=== PATIENT | female | born 1970 ===

== ENCOUNTER 2017-03-09 18:26 | Inpatient (IN) | payer OTHER ==
[2017-03-09 20:52] LABS: Hematocrit 37.6 % (30.3-42.9); Hemoglobin 12.5 gm/dl (10.1-14.3); Mean Corpuscular HGB Conc 33 % (30-34); Mean Corpuscular Hemoglobin 29 pg (28-32); Mean Corpuscular Volume 87 fl (79-97); Platelet Count 198 K/mm3 (140-440); Red Blood Count 4.35 M/mm3 (3.65-5.03); Red Cell Distribution Width 14.6 % (13.2-15.2)
[2017-03-09 21:13] LABS: Anion Gap 19 mmol/L; Blood Urea Nitrogen 15 mg/dL (7-17); Calcium 8.9 mg/dL (8.4-10.2); Carbon Dioxide 21 mmol/L (22-30); Glucose 95 mg/dL (65-100); Potassium 4.5 mmol/L (3.6-5.0); Sodium 140 mmol/L (137-145)
[2017-03-09 22:10] LABS: Blastocytes % (Manual) 0 %
[2017-03-09 22:11] LABS: Diff Status Complete; Platelet Estimate Consistent w Auto; RBC Morphology Normal
[2017-03-10] MEDS ORDERED: DECADRON IV ONE (06:08)
[2017-03-10] MEDS ORDERED: DUONEB *Not for PRN Use IH ONE (06:08)
--- NOTE | 2017-03-10 06:09 | Emergency Department Report ---
ED Chest Pain HPI - General Chief Complaint: Chest Pain Stated Complaint: CHEST PAIN Time Seen by Provider: 03/10/17 05:59 Source: patient Mode of arrival: Stretcher Limitations: No Limitations - History of Present Illness Initial Comments: Patient is a 46-year-old female who presents to the emergency department with complaint of chest pain for 3 years. She states the pain has been getting worse over the last several days which is why she returned to the emergency department. States she's had some cough but no fever. She does short of breath with chest pain. She describes chest pain as a tightness. -: year(s) (3) Onset: during rest, during exertion Pain Location: right chest Pain Radiation: none Severity scale (0 -10): 5 Quality: tightness Consistency: constant Improves With: nothing, eating Worsens With: exertion, inspiration Context: recent illness re: dyspnea. denies: nausea, vomting Other Symptoms: cough - Related Data Home Medications Medication Instructions Recorded Confirmed Last Taken No Known Home Medications [No 03/09/17 03/09/17 Unknown Reported Home Medications] Allergies Allergy/AdvReac Type Severity Reaction Status Date / Time aspirin Allergy Rash Verified 03/09/17 19:34 Heart Score - HEART Score History: Slightly suspicious EKG: Normal Age: 45-65 Risk factors: > 3 risk factors or hx of atherosclerotic disease Troponin: < normal limit HEART Score: 3 - Critical Actions Critical Actions: 0-3 pts:0.9-1.7%risk of adverse cardiac event.Candidate for discharge ED Review of Systems ROS: Stated complaint: CHEST PAIN Other details as noted in HPI Comment: All other systems reviewed and negative Constitutional: denies: chills, fever Eyes: denies: eye pain, eye discharge, vision change ENT: denies: ear pain, throat pain Respiratory: cough, shortness of breath, SOB with exertion. denies: wheezing Cardiovascular: chest pain, dyspnea on exertion. denies: palpitations Endocrine: no symptoms reported Gastrointestinal: denies: abdominal pain, nausea, diarrhea Genitourinary: denies: urgency, dysuria, discharge Musculoskeletal: denies: back pain, joint swelling, arthralgia Skin: denies: rash, lesions Neurological: denies: headache, weakness, paresthesias Psychiatric: denies: anxiety, depression Hematological/Lymphatic: denies: easy bleeding, easy bruising ED Past Medical Hx - Past Medical History Previous Medical History?: Yes Additional medical history: History of "heart damage" - Surgical History Past Surgical History?: No - Family History Family history: no significant - Social History Smoking Status: Never Smoker Substance Use Type: None - Medications Home Medications: Home Medications Medication Instructions Recorded Confirmed Last Taken Type No Known Home Medications [No 03/09/17 03/09/17 Unknown History Reported Home Medications] ED Physical Exam - General Limitations: No Limitations General appearance: alert, in no apparent distress - Head Head exam: Present: atraumatic, normocephalic - Eye Eye exam: Present: normal appearance. Absent: scleral icterus, conjunctival injection - ENT ENT exam: Present: mucous membranes moist - Neck Neck exam: Present: normal inspection - Respiratory Respiratory exam: Present: wheezes, accessory muscle use, other (tachypnea) - Cardiovascular Cardiovascular Exam: Present: regular rate, normal rhythm, normal heart sounds. Absent: systolic murmur, diastolic murmur, rubs, gallop - GI/Abdominal GI/Abdominal exam: Present: soft, normal bowel sounds - Extremities Exam Extremities exam: Present: normal inspection - Back Exam Back exam: Present: normal inspection - Neurological Exam Neurological exam: Present: alert, oriented X3 - Psychiatric Psychiatric exam: Present: normal affect, normal mood - Skin Skin exam: Present: warm, dry, intact, normal color. Absent: rash ED Course Vital Signs 03/09/17 03/10/17 03/10/17 19:21 00:29 04:49 Temperature 98.2 F 97.9 F 97.8 F Pulse Rate 74 74 68 Respiratory 18 18 20 Rate Blood Pressure 127/70 135/80 Blood Pressure 133/94 [Left] O2 Sat by Pulse 94 95 97 Oximetry 03/10/17 03/10/17 04:50 08:17 Temperature 97.9 F Pulse Rate 94 H Respiratory 20 15 Rate Blood Pressure Blood Pressure 132/73 [Left] O2 Sat by Pulse 97 97 Oximetry ED Medical Decision Making - Lab Data Result diagrams: 03/09/17 20:37 03/09/17 20:37 Laboratory Results - last 24 hr 03/09/17 03/09/17 03/09/17 20:37 20:37 20:45 WBC 6.0 RBC 4.35 Hgb 12.5 Hct 37.6 MCV 87 MCH 29 MCHC 33 RDW 14.6 Plt Count 198 Eos % (Auto) Founder And Ceo Add Manual Diff Complete Total Counted 100 Seg Neuts % (Manual) 42.0 Band Neutrophils % 2.0 Lymphocytes % (Manual) 28.0 Reactive Lymphs % (Man) 2.0 Monocytes % (Manual) 12.0 H Eosinophils % (Manual) 12.0 H Basophils % (Manual) 2.0 H Metamyelocytes % 0 Myelocytes % 0 Promyelocytes % 0 Blast Cells % 0 Nucleated RBC % Not Reportable Seg Neutrophils # Man 2.5 Band Neutrophils # 0.1 Lymphocytes # (Manual) 1.7 Abs React Lymphs (Man) 0.1 Monocytes # (Manual) 0.7 Eosinophils # (Manual) 0.7 H Basophils # (Manual) 0.1 Metamyelocytes # 0.0 Myelocytes # 0.0 Promyelocytes # 0.0 Blast Cells # 0.0 WBC Morphology Not Reportable Hypersegmented Neuts Not Reportable Hyposegmented Neuts Not Reportable Hypogranular Neuts Not Reportable Smudge Cells Not Reportable Toxic Granulation Not Reportable Toxic Vacuolation Not Reportable Dohle Bodies Not Reportable Pelger-Huet Anomaly Not Reportable Shaheen Rods Not Reportable Platelet Estimate Consistent w auto Clumped Platelets Not Reportable Plt Clumps, EDTA Not Reportable Large Platelets Not Reportable Giant Platelets Not Reportable Platelet Satelliting Not Reportable Plt Morphology Comment Not Reportable RBC Morphology Normal Dimorphic RBCs Not Reportable Polychromasia Not Reportable Hypochromasia Not Reportable Poikilocytosis Not Reportable Anisocytosis Not Reportable Microcytosis Not Reportable Macrocytosis Not Reportable Spherocytes Not Reportable Pappenheimer Bodies Not Reportable Sickle Cells Not Reportable Target Cells Not Reportable Tear Drop Cells Not Reportable Ovalocytes Not Reportable Helmet Cells Not Reportable [place]endez-[place] Bodies Not Reportable [place] Rings Not Reportable Bard Cells Not Reportable Bite Cells Not Reportable Crenated Cell Not Reportable Elliptocytes Not Reportable Acanthocytes (Spur) Not Reportable Rouleaux Not Reportable Hemoglobin C Crystals Not Reportable Schistocytes Not Reportable Malaria parasites Not Reportable Jose E Bodies Not Reportable Hem Pathologist Commnt No D-Dimer Sodium 140 Potassium 4.5 Chloride 105.0 Carbon Dioxide 21 L Anion Gap 19 BUN 15 Creatinine 0.5 L Estimated GFR > 60 BUN/Creatinine Ratio 30.00 Glucose 95 Calcium 8.9 Troponin T < 0.010 HCG, Qual Negative 03/09/17 03/10/17 03/10/17 22:55 02:17 04:58 WBC RBC Hgb Hct MCV MCH MCHC RDW Plt Count Eos % (Auto) Add Manual Diff Total Counted Seg Neuts % (Manual) Band Neutrophils % Lymphocytes % (Manual) Reactive Lymphs % (Man) Monocytes % (Manual) Eosinophils % (Manual) Basophils % (Manual) Metamyelocytes % Myelocytes % Promyelocytes % Blast Cells % Nucleated RBC % Seg Neutrophils # Man Band Neutrophils # Lymphocytes # (Manual) Abs React Lymphs (Man) Monocytes # (Manual) Eosinophils # (Manual) Basophils # (Manual) Metamyelocytes # Myelocytes # Promyelocytes # Blast Cells # WBC Morphology Hypersegmented Neuts Hyposegmented Neuts Hypogranular Neuts Smudge Cells Toxic Granulation Toxic Vacuolation Dohle Bodies Pelger-Huet Anomaly Shaheen Rods Platelet Estimate Clumped Platelets Plt Clumps, EDTA Large Platelets Giant Platelets Platelet Satelliting Plt Morphology Comment RBC Morphology Dimorphic RBCs Polychromasia Hypochromasia Poikilocytosis Anisocytosis Microcytosis Macrocytosis Spherocytes Pappenheimer Bodies Sickle Cells Target Cells Tear Drop Cells Ovalocytes Helmet Cells [place]endez-[place] Bodies [place] Rings Bard Cells Bite Cells Crenated Cell Elliptocytes Acanthocytes (Spur) Rouleaux Hemoglobin C Crystals Schistocytes Malaria parasites Jose E Bodies Hem Pathologist Commnt D-Dimer 278.56 H Sodium Potassium Chloride Carbon Dioxide Anion Gap BUN Creatinine Estimated GFR BUN/Creatinine Ratio Glucose Calcium Troponin T < 0.010 < 0.010 HCG, Qual - EKG Data -: EKG Interpreted by Me - EKG Data 03/10/17 06:09 Sinus 71 normal axis normal intervals no ST-T wave changes - Radiology Data Radiology results: image reviewed No evidence of CHF on chest x-ray - Medical Decision Making 46-year-old female here with complaint of chest pain. She is actively wheezing and tachypneic in the room. Believe this is likely a asthma versus COPD exacerbation. The patient states that she does use inhalers from time to time in the winter months. She does not use steroids regularly. Chest x-ray no evidence of CHF. EKG without evidence of ischemia. 2 negative troponins. Plan to treat with albuterol and Atrovent and Decadron and plan to reassess patient. Patient with mild improvement after nebulizer and steroids. She still appears tachypneic and oxygen saturations in the low 90s on room air. Plan admit the patient to hospitalist service for continued treatment. Portions of this chart were dictated with dictation software. There may be dictation errors contained within this note. Critical care attestation.: If time is entered above; I have spent that time in minutes in the direct care of this critically ill patient, excluding procedure time. ED Disposition Clinical Impression: Asthma with acute exacerbation Disposition: DC-09 OP ADMIT IP TO THIS HOSP Is pt being admited?: Yes Condition: Stable Referrals: GUERLINE MITCHELL [Other] - 3-5 Days
--- NOTE | 2017-03-10 07:45 | XRay Report ---
ROUTINE CHEST, TWO VIEWS: HISTORY: Chest pain, cough. The trachea, heart, mediastinal contour, lung nieves and bony thorax are unremarkable. IMPRESSION: Unremarkable chest x-ray.
[2017-03-10] MEDS ORDERED: PROVENTIL IH PRN (09:43)
[2017-03-10] MEDS ORDERED: ZOFRAN IV PRN (09:43)
[2017-03-10] MEDS ORDERED: ATROVENT IH SCH (09:45)
[2017-03-10] MEDS ORDERED: TYLENOL PO PRN (10:00)
[2017-03-10] MEDS ORDERED: DULCOLAX PR PRN (10:00)
[2017-03-10] MEDS ORDERED: NACL ONE (10:17)
[2017-03-10] MEDS: LOVENOX SUB-Q SCH (11:17)
[2017-03-10] MEDS: DUONEB *Not for PRN Use IH SCH ×2 (13:19→20:34)
--- NOTE | 2017-03-10 14:02 | Cat Scan Report ---
CTA chest: Chest pain with elevated d-dimer. Following IV contrast pulmonary and was protocol transverse images were performed with coronal and sagittal 2-D reformatted images as well as a 3-D MIP image. The pulmonary vessels are well opacified as are the cardiac chambers and thoracic aorta. No intraluminal filling defects identified in the pulmonary arteries or ventricular chambers. The thoracic aorta is also well opacified and have a normal size and contour. The central airways are patent. There is a 19 mm sized mass/lymph node in the superior right hilum with smaller adenopathy around the lower lobe pulmonary structures on the right as well as on the left. There is bilateral lower lobe bronchial mucous plugging. Basilar atelectasis is present peripherally. The thyroid lobes demonstrate inhomogeneous enhancement with a focally enhancing 12 mm nodule on the right. Impressions: 1. No pulmonary embolus identified. 2. Bilateral hilar and right peripheral adenopathy. 3. Mucous plugging and lower lobe atelectasis. 4. Enhancing thyroid nodule.
[2017-03-10] MEDS: PEPCID PO SCH (14:10)
[2017-03-10] MEDS: AUGMENTIN 875 MG PO SCH ×2 (14:10→23:38)
--- NOTE | 2017-03-10 15:22 | Event Note ---
Date: 03/10/17 Patient seen and examined in no acute distress admitted with shortness of breath reproducible chest pain that has been ongoing for more than a year worse in the past 1 week. Patient reports cough productive of clear phlegm. Denies any fever denies any nausea vomiting describes chest pain as 5/10 intensity worse with palpation across the chest. Burning in nature Acute Bronchitis with mucus plugging Atypical chest pain-Likely condochondritis Asthma with acute exacerbation Elevated D.dimer PLAN * Nebs as needed and PRN * PEAK FLOW METER * Pulmonary evaulation * steroids with taper * Stress test when clinically stable * PO abx * dvt/gi PROPHY * PE RULED OUT. * Plan discussed with the patient in detail
--- NOTE | 2017-03-10 15:29 | History and Physical Report ---
<KELSY WOO - Last Filed: 03/11/17 07:34> History of Present Illness Date of examination: 03/10/17 Date of admission: 03/10/17 09:43 Chief complaint: Shortness of breath History of present illness: Patient is 46 years old Som[place] female with past medical history of Asthma, who presents to the emergency department with complaining of shortness of breath.Until this morning patient was at her normal baseline state of health. Patient developed difficulty of breathing this morning around 5:00 AM she has had progressive worsening of shortness of breath. Patient denies she has had no fevers, chills, or night sweats. No hx of recurrent pneumonia. She has no sick contact, TB exposure (that she knows of ie incarcerated, homeless). She also has no pets, has not been around any farm animals, and has not traveled recently or been around those who have. Patient also complians chest pain. She states that the pain began yesterday constant left side chest pain. The pain was located over her substerna.Patient described as, burning localized. Pain increased with palpation, there is no reliving factors. The painful episodes did not increase in intensity or severity during this time. Shee denies shortness of breath and diaphoresis. Past History Past Medical History: other (Asthma ) Past Surgical History: No surgical history Social history: lives with family. denies: smoking, alcohol abuse Family history: hypertension Medications and Allergies Allergies Allergy/AdvReac Type Severity Reaction Status Date / Time aspirin Allergy Rash Verified 03/09/17 19:34 Home Medications Medication Instructions Recorded Confirmed Last Taken Type No Known Home Medications [No 03/09/17 03/09/17 Unknown History Reported Home Medications] Active Meds: Active Medications Acetaminophen (Tylenol) 650 mg PO Q4H PRN PRN Reason: Pain MILD(1-3)/Fever >100.5/STALEY Albuterol (Proventil) 2.5 mg IH Q3HRT PRN PRN Reason: Shortness Of Breath Albuterol/Ipratropium (Duoneb *Not For Prn Use*) 1 ampul IH Q6HRT [facility] Last Admin: 03/10/17 13:19 Dose: 1 ampul Amoxicillin/Clavulanate Potassium (Augmentin 875 Mg) 1 each PO Q12HR [facility] Last Admin: 03/10/17 14:10 Dose: 1 each Bisacodyl (Dulcolax) [address] QDAY PRN PRN Reason: Constipation Enoxaparin Sodium (Lovenox) 40 mg SUB-Q QDAY [facility] Last Admin: 03/10/17 11:17 Dose: 40 mg Famotidine (Pepcid) 40 mg PO QDAY [facility] Last Admin: 03/10/17 14:10 Dose: 40 mg Methylprednisolone Sodium Succinate (Solu-Medrol) 40 mg IV Q6HR [facility] Last Admin: 03/10/17 14:10 Dose: 40 mg Ondansetron HCl (Zofran) 4 mg IV Q8H PRN PRN Reason: N/V unrelieved by Reglan Review of Systems Constitutional: no weight loss, no weight gain, no fever Ears, nose, mouth and throat: no ear pain, no ear discharge, no tinnitis, no decreased hearing, no nose pain Breasts: no change in shape, no swelling Cardiovascular: chest pain, shortness of breath, dyspnea on exertion, no orthopnea, no palpitations, no rapid/irregular heart beat Respiratory: cough, cough with sputum, no excessive sputum, no hemoptysis Gastrointestinal: no vomiting, no diarrhea, no constipation, no change in bowel habits Genitourinary Female: no dyspareunia, no dysmenorrhea, no pelvic pain, no flank pain, no menorrhagia, no dysuria Menstruation: no currently menstrual, no premenarcheal, no post hysterectomy, no ammenorrhea Rectal: no pain, no incontinence, no bleeding Musculoskeletal: no neck stiffness, no neck pain, no shooting arm pain, no arm numbness/tingling, no low back pain Integumentary: no pruritis, no redness, no sores, no wounds Neurological: no transient paralysis, no paralysis, no weakness, no parathesias , no numbness Psychiatric: no anxiety, no change in sleep habits, no sleep disturbances, no insomnia, no hypersomnia, no change in appetite, no change in libido Endocrine: no cold intolerance, no polyphagia, no excessive thirst, no polydipsia, no weight change Hematologic/Lymphatic: no easy bruising, no easy bleeding Allergic/Immunologic: no urticaria, no allergic rhinitis Exam - Constitutional Vitals: Temp Pulse Resp BP Pulse Ox 97.4 F L 107 H 16 119/65 94 03/10/17 13:59 03/10/17 13:59 03/10/17 13:59 03/10/17 13:59 03/10/17 13:59 General appearance: Present: no acute distress - EENT Eyes: Present: PERRL ENT: hearing intact - Neck Neck: Present: supple - Respiratory Respiratory effort: normal Respiratory: negative: wheezing (mild) - Cardiovascular Rhythm: regular Heart Sounds: Present: S1 & S2 - Extremities Extremities: no ischemia Peripheral Pulses: within normal limits - Abdominal General gastrointestinal: Present: soft, non-tender Female genitourinary: Present: deferred - Rectal Rectal Exam: deferred - Integumentary Integumentary: Present: clear, warm, dry - Musculoskeletal Musculoskeletal: strength equal bilaterally - Psychiatric Psychiatric: appropriate mood/affect - Neurologic Neurologic: CNII-XII intact - Allied Health Allied health notes reviewed: nursing Results - Labs CBC & Chem 7: 03/09/17 20:37 03/09/17 20:37 Labs: Laboratory Last Values WBC 6.0 K/mm3 (4.5-11.0) 03/09/17 20:37 RBC 4.35 M/mm3 (3.65-5.03) 03/09/17 20:37 Hgb 12.5 gm/dl (10.1-14.3) 03/09/17 20:37 Hct 37.6 % (30.3-42.9) 03/09/17 20:37 MCV 87 fl (79-97) 03/09/17 20:37 MCH 29 pg (28-32) 03/09/17 20:37 MCHC 33 % (30-34) 03/09/17 20:37 RDW 14.6 % (13.2-15.2) 03/09/17 20:37 Plt Count 198 K/mm3 (140-440) 03/09/17 20:37 Eos % (Auto) [place] Breaker 03/09/17 20:37 Add Manual Diff Complete 03/09/17 20:37 Total Counted 100 03/09/17 20:37 Seg Neuts % (Manual) 42.0 % (40.0-70.0) 03/09/17 20:37 Band Neutrophils % 2.0 % 03/09/17 20:37 Lymphocytes % (Manual) 28.0 % (13.4-35.0) 03/09/17 20:37 Reactive Lymphs % (Man) 2.0 % 03/09/17 20:37 Monocytes % (Manual) 12.0 % (0.0-7.3) H 03/09/17 20:37 Eosinophils % (Manual) 12.0 % (0.0-4.3) H 03/09/17 20:37 Basophils % (Manual) 2.0 % (0.0-1.8) H 03/09/17 20:37 Metamyelocytes % 0 % 03/09/17 20:37 Myelocytes % 0 % 03/09/17 20:37 Promyelocytes % 0 % 03/09/17 20:37 Blast Cells % 0 % 03/09/17 20:37 Nucleated RBC % Not Reportable 03/09/17 20:37 Seg Neutrophils # Man 2.5 K/mm3 (1.8-7.7) 03/09/17 20:37 Band Neutrophils # 0.1 K/mm3 03/09/17 20:37 Lymphocytes # (Manual) 1.7 K/mm3 (1.2-5.4) 03/09/17 20:37 Abs React Lymphs (Man) 0.1 K/mm3 03/09/17 20:37 Monocytes # (Manual) 0.7 K/mm3 (0.0-0.8) 03/09/17 20:37 Eosinophils # (Manual) 0.7 K/mm3 (0.0-0.4) H 03/09/17 20:37 Basophils # (Manual) 0.1 K/mm3 (0.0-0.1) 03/09/17 20:37 Metamyelocytes # 0.0 K/mm3 03/09/17 20:37 Myelocytes # 0.0 K/mm3 03/09/17 20:37 Promyelocytes # 0.0 K/mm3 03/09/17 20:37 Blast Cells # 0.0 K/mm3 03/09/17 20:37 WBC Morphology Not Reportable 03/09/17 20:37 Hypersegmented Neuts Not Reportable 03/09/17 20:37 Hyposegmented Neuts Not Reportable 03/09/17 20:37 Hypogranular Neuts Not Reportable 03/09/17 20:37 Smudge Cells Not Reportable 03/09/17 20:37 Toxic Granulation Not Reportable 03/09/17 20:37 Toxic Vacuolation Not Reportable 03/09/17 20:37 Dohle Bodies Not Reportable 03/09/17 20:37 Pelger-[place]uet Anomaly Not Reportable 03/09/17 20:37 Shaheen Rods Not Reportable 03/09/17 20:37 Platelet Estimate Consistent w auto 03/09/17 20:37 Clumped Platelets Not Reportable 03/09/17 20:37 Plt Clumps, EDTA Not Reportable 03/09/17 20:37 Large Platelets Not Reportable 03/09/17 20:37 Giant Platelets Not Reportable 03/09/17 20:37 Platelet Satelliting Not Reportable 03/09/17 20:37 Plt Morphology Comment Not Reportable 03/09/17 20:37 RBC Morphology Normal 03/09/17 20:37 Dimorphic RBCs Not Reportable 03/09/17 20:37 Polychromasia Not Reportable 03/09/17 20:37 Hypochromasia Not Reportable 03/09/17 20:37 Poikilocytosis Not Reportable 03/09/17 20:37 Anisocytosis Not Reportable 03/09/17 20:37 Microcytosis Not Reportable 03/09/17 20:37 Macrocytosis Not Reportable 03/09/17 20:37 Spherocytes Not Reportable 03/09/17 20:37 Pappenheimer Bodies Not Reportable 03/09/17 20:37 Sickle Cells Not Reportable 03/09/17 20:37 Target Cells Not Reportable 03/09/17 20:37 Tear Drop Cells Not Reportable 03/09/17 20:37 Ovalocytes Not Reportable 03/09/17 20:37 Helmet Cells Not Reportable 03/09/17 20:37 [place] Bodies Not Reportable 03/09/17 20:37 [place] Rings Not Reportable 03/09/17 20:37 [place] Cells Not Reportable 03/09/17 20:37 Bite Cells Not Reportable 03/09/17 20:37 Crenated Cell Not Reportable 03/09/17 20:37 Elliptocytes Not Reportable 03/09/17 20:37 Acanthocytes (Spur) Not Reportable 03/09/17 20:37 Rouleaux Not Reportable 03/09/17 20:37 Hemoglobin C Crystals Not Reportable 03/09/17 20:37 Schistocytes Not Reportable 03/09/17 20:37 Malaria parasites Not Reportable 03/09/17 20:37 Jose E Bodies Not Reportable 03/09/17 20:37 Hem Pathologist Commnt No 03/09/17 20:37 D-Dimer 278.56 ng/mlDDU (0-234) H 03/10/17 04:58 Sodium 140 mmol/L (137-145) 03/09/17 20:37 Potassium 4.5 mmol/L (3.6-5.0) 03/09/17 20:37 Chloride 105.0 mmol/L (98-107) 03/09/17 20:37 Carbon Dioxide 21 mmol/L (22-30) L 03/09/17 20:37 Anion Gap 19 mmol/L 03/09/17 20:37 BUN 15 mg/dL (7-17) 03/09/17 20:37 Creatinine 0.5 mg/dL (0.7-1.2) L 03/09/17 20:37 Estimated GFR > 60 ml/min 03/09/17 20:37 BUN/Creatinine Ratio 30.00 % 03/09/17 20:37 Glucose 95 mg/dL (65-100) 03/09/17 20:37 Calcium 8.9 mg/dL (8.4-10.2) 03/09/17 20:37 Troponin T < 0.010 ng/mL (0.00-0.029) 03/10/17 02:17 HCG, Qual Negative (Negative) 03/09/17 20:45 Assessment and Plan Assessment and plan: Patient is 46 years old [place] female with past medical history of Asthma, who presents to the emergency department with complaining of shortness of breath.Until this morning patient was at her normal baseline state of health. Patient developed difficulty of breathing this morning around 5:00 AM she has had progressive worsening of shortness of breath. She also has no pets, has not been around any farm animals, and has not traveled recently or been around those who have. Patient also complians chest pain. She states that the pain began yesterday constant left side chest pain. Acute Asthma exacerbation Started on albuterol and Atrovent. Aggressive Nebulizers/Inhalers Started IV steroid Solumedrol every 6 Initiated on empiric treatment of Augmentin Oxygen as necessary Chest Pain Atypical chest pain most likely condochondritis We will admit to telemetry floor. EKG normal sinus rate [address] elevation or T-wave inversion. We will get another EKG ordered for a changes that have taken since the first one obtained Negative cardiac enzyme X2 Start on aspirin Nitroglycerin when necessary Morphine ordered for pain Stress test ordered. Acute Bronchitis with mucus plugging Bronchodilator's and Augmentin Elevated D.dimer VQ scan ordered VL doppler ordered DVT prophylaxis Lovenox Advance Directives: Yes VTE prophylaxis?: Chemical Contraindication Mechanical VTE Prophylaxis: Treatment Not Indicated Plan of care discussed with patient/family: Yes <ROCIO GLOVER - Last Filed: 03/11/17 08:04> History of Present Illness Date of admission: 03/10/17 09:43 Medications and Allergies Active Meds: Active Medications Acetaminophen (Tylenol) 650 mg PO Q4H PRN PRN Reason: Pain MILD(1-3)/Fever >100.5/STALEY Albuterol (Proventil) 2.5 mg IH Q3HRT PRN PRN Reason: Shortness Of Breath Albuterol/Ipratropium (Duoneb *Not For Prn Use*) 1 ampul IH Q6HRT [facility] Last Admin: 03/10/17 20:34 Dose: 1 ampul Amoxicillin/Clavulanate Potassium (Augmentin 875 Mg) 1 each PO Q12HR [facility] Last Admin: 03/10/17 23:38 Dose: 1 each Bisacodyl (Dulcolax) [address] QDAY PRN PRN Reason: Constipation Enoxaparin Sodium (Lovenox) 40 mg SUB-Q QDAY [facility] Last Admin: 03/10/17 11:17 Dose: 40 mg Famotidine (Pepcid) 40 mg PO QDAY [facility] Last Admin: 03/10/17 14:10 Dose: 40 mg Methylprednisolone Sodium Succinate (Solu-Medrol) 40 mg IV Q6HR [facility] Last Admin: 03/11/17 07:25 Dose: 40 mg Nitroglycerin (Nitrostat) 0.4 mg SL .Q5MIN PRN PRN Reason: Chest Pain Ondansetron HCl (Zofran) 4 mg IV Q8H PRN PRN Reason: N/V unrelieved by Reglan Exam - Constitutional Vitals: Temp Pulse Resp BP Pulse Ox 98.5 F 98 H 18 115/67 96 03/10/17 23:11 03/10/17 23:11 03/10/17 23:11 03/10/17 23:11 03/10/17 23:11 Results - Labs CBC & Chem 7: 03/11/17 07:41 03/09/17 20:37 Labs: Laboratory Last Values WBC 15.0 K/mm3 (4.5-11.0) H 03/11/17 07:41 RBC 4.46 M/mm3 (3.65-5.03) 03/11/17 07:41 Hgb 12.7 gm/dl (10.1-14.3) 03/11/17 07:41 Hct 39.0 % (30.3-42.9) 03/11/17 07:41 MCV 87 fl (79-97) 03/11/17 07:41 MCH 29 pg (28-32) 03/11/17 07:41 MCHC 33 % (30-34) 03/11/17 07:41 RDW 14.9 % (13.2-15.2) 03/11/17 07:41 Plt Count 235 K/mm3 (140-440) 03/11/17 07:41 Lymph % (Auto) 11.6 % (13.4-35.0) L 03/11/17 07:41 [place] % (Auto) 4.1 % (0.0-7.3) 03/11/17 07:41 Eos % (Auto) 0.1 % (0.0-4.3) 03/11/17 07:41 Baso % (Auto) 0.4 % (0.0-1.8) 03/11/17 07:41 Lymph # 1.7 K/mm3 (1.2-5.4) 03/11/17 07:41 [place] # 0.6 K/mm3 (0.0-0.8) 03/11/17 07:41 Eos # 0.0 K/mm3 (0.0-0.4) 03/11/17 07:41 Baso # 0.1 K/mm3 (0.0-0.1) 03/11/17 07:41 Add Manual Diff Complete 03/09/17 20:37 Total Counted 100 03/09/17 20:37 Seg Neutrophils % 83.8 % (40.0-70.0) H 03/11/17 07:41 Seg Neuts % (Manual) 42.0 % (40.0-70.0) 03/09/17 20:37 Band Neutrophils % 2.0 % 03/09/17 20:37 Lymphocytes % (Manual) 28.0 % (13.4-35.0) 03/09/17 20:37 Reactive Lymphs % (Man) 2.0 % 03/09/17 20:37 Monocytes % (Manual) 12.0 % (0.0-7.3) H 03/09/17 20:37 Eosinophils % (Manual) 12.0 % (0.0-4.3) H 03/09/17 20:37 Basophils % (Manual) 2.0 % (0.0-1.8) H 03/09/17 20:37 Metamyelocytes % 0 % 03/09/17 20:37 Myelocytes % 0 % 03/09/17 20:37 Promyelocytes % 0 % 03/09/17 20:37 Blast Cells % 0 % 03/09/17 20:37 Nucleated RBC % Not Reportable 03/09/17 20:37 Seg Neutrophils # 12.6 K/mm3 (1.8-7.7) H 03/11/17 07:41 Seg Neutrophils # Man 2.5 K/mm3 (1.8-7.7) 03/09/17 20:37 Band Neutrophils # 0.1 K/mm3 03/09/17 20:37 Lymphocytes # (Manual) 1.7 K/mm3 (1.2-5.4) 03/09/17 20:37 Abs React Lymphs (Man) 0.1 K/mm3 03/09/17 20:37 Monocytes # (Manual) 0.7 K/mm3 (0.0-0.8) 03/09/17 20:37 Eosinophils # (Manual) 0.7 K/mm3 (0.0-0.4) H 03/09/17 20:37 Basophils # (Manual) 0.1 K/mm3 (0.0-0.1) 03/09/17 20:37 Metamyelocytes # 0.0 K/mm3 03/09/17 20:37 Myelocytes # 0.0 K/mm3 03/09/17 20:37 Promyelocytes # 0.0 K/mm3 03/09/17 20:37 Blast Cells # 0.0 K/mm3 03/09/17 20:37 WBC Morphology Not Reportable 03/09/17 20:37 Hypersegmented Neuts Not Reportable 03/09/17 20:37 Hyposegmented Neuts Not Reportable 03/09/17 20:37 Hypogranular Neuts Not Reportable 03/09/17 20:37 Smudge Cells Not Reportable 03/09/17 20:37 Toxic Granulation Not Reportable 03/09/17 20:37 Toxic Vacuolation Not Reportable 03/09/17 20:37 Dohle Bodies Not Reportable 03/09/17 20:37 Pelger-Huet Anomaly Not Reportable 03/09/17 20:37 Shaheen Rods Not Reportable 03/09/17 20:37 Platelet Estimate Consistent w auto 03/09/17 20:37 Clumped Platelets Not Reportable 03/09/17 20:37 Plt Clumps, EDTA Not Reportable 03/09/17 20:37 Large Platelets Not Reportable 03/09/17 20:37 Giant Platelets Not Reportable 03/09/17 20:37 Platelet Satelliting Not Reportable 03/09/17 20:37 Plt Morphology Comment Not Reportable 03/09/17 20:37 RBC Morphology Normal 03/09/17 20:37 Dimorphic RBCs Not Reportable 03/09/17 20:37 Polychromasia Not Reportable 03/09/17 20:37 Hypochromasia Not Reportable 03/09/17 20:37 Poikilocytosis Not Reportable 03/09/17 20:37 Anisocytosis Not Reportable 03/09/17 20:37 Microcytosis Not Reportable 03/09/17 20:37 Macrocytosis Not Reportable 03/09/17 20:37 Spherocytes Not Reportable 03/09/17 20:37 Pappenheimer Bodies Not Reportable 03/09/17 20:37 Sickle Cells Not Reportable 03/09/17 20:37 Target Cells Not Reportable 03/09/17 20:37 Tear Drop Cells Not Reportable 03/09/17 20:37 Ovalocytes Not Reportable 03/09/17 20:37 Helmet Cells Not Reportable 03/09/17 20:37 [place] Bodies Not Reportable 03/09/17 20:37 [place] Rings Not Reportable 03/09/17 20:37 [place] Cells Not Reportable 03/09/17 20:37 Bite Cells Not Reportable 03/09/17 20:37 Crenated Cell Not Reportable 03/09/17 20:37 Elliptocytes Not Reportable 03/09/17 20:37 Acanthocytes (Spur) Not Reportable 03/09/17 20:37 Rouleaux Not Reportable 03/09/17 20:37 Hemoglobin C Crystals Not Reportable 03/09/17 20:37 Schistocytes Not Reportable 03/09/17 20:37 Malaria parasites Not Reportable 03/09/17 20:37 Jose E Bodies Not Reportable 03/09/17 20:37 Hem Pathologist Commnt No 03/09/17 20:37 D-Dimer 278.56 ng/mlDDU (0-234) H 03/10/17 04:58 Sodium 140 mmol/L (137-145) 03/09/17 20:37 Potassium 4.5 mmol/L (3.6-5.0) 03/09/17 20:37 Chloride 105.0 mmol/L (98-107) 03/09/17 20:37 Carbon Dioxide 21 mmol/L (22-30) L 03/09/17 20:37 Anion Gap 19 mmol/L 03/09/17 20:37 BUN 15 mg/dL (7-17) 03/09/17 20:37 Creatinine 0.5 mg/dL (0.7-1.2) L 03/09/17 20:37 Estimated GFR > 60 ml/min 03/09/17 20:37 BUN/Creatinine Ratio 30.00 % 03/09/17 20:37 Glucose 95 mg/dL (65-100) 03/09/17 20:37 Calcium 8.9 mg/dL (8.4-10.2) 03/09/17 20:37 Troponin T < 0.010 ng/mL (0.00-0.029) 03/10/17 02:17 HCG, Qual Negative (Negative) 03/09/17 20:45 Assessment and Plan Assessment and plan: See Event note as documented. I saw and evaluated the patient. I agree with the findings and the plan of care as documented in the Nurse Practitioner's~note, with the following corrections and additions.
[2017-03-10] MEDS ORDERED: NITROSTAT SL PRN (15:37)
--- NOTE | 2017-03-11 07:35 | Progress Note ---
Hospitalist Physical - Constitutional Vitals: Temp Pulse Resp BP Pulse Ox 98.5 F 98 H 18 115/67 96 03/10/17 23:11 03/10/17 23:11 03/10/17 23:11 03/10/17 23:11 03/10/17 23:11 General appearance: Present: no acute distress Results - Labs CBC & Chem 7: 03/09/17 20:37 03/09/17 20:37 Labs: Laboratory Last Values WBC 6.0 K/mm3 (4.5-11.0) 03/09/17 20:37 RBC 4.35 M/mm3 (3.65-5.03) 03/09/17 20:37 Hgb 12.5 gm/dl (10.1-14.3) 03/09/17 20:37 Hct 37.6 % (30.3-42.9) 03/09/17 20:37 MCV 87 fl (79-97) 03/09/17 20:37 MCH 29 pg (28-32) 03/09/17 20:37 MCHC 33 % (30-34) 03/09/17 20:37 RDW 14.6 % (13.2-15.2) 03/09/17 20:37 Plt Count 198 K/mm3 (140-440) 03/09/17 20:37 Eos % (Auto) [employer] 03/09/17 20:37 Add Manual Diff Complete 03/09/17 20:37 Total Counted 100 03/09/17 20:37 Seg Neuts % (Manual) 42.0 % (40.0-70.0) 03/09/17 20:37 Band Neutrophils % 2.0 % 03/09/17 20:37 Lymphocytes % (Manual) 28.0 % (13.4-35.0) 03/09/17 20:37 Reactive Lymphs % (Man) 2.0 % 03/09/17 20:37 Monocytes % (Manual) 12.0 % (0.0-7.3) H 03/09/17 20:37 Eosinophils % (Manual) 12.0 % (0.0-4.3) H 03/09/17 20:37 Basophils % (Manual) 2.0 % (0.0-1.8) H 03/09/17 20:37 Metamyelocytes % 0 % 03/09/17 20:37 Myelocytes % 0 % 03/09/17 20:37 Promyelocytes % 0 % 03/09/17 20:37 Blast Cells % 0 % 03/09/17 20:37 Nucleated RBC % Not Reportable 03/09/17 20:37 Seg Neutrophils # Man 2.5 K/mm3 (1.8-7.7) 03/09/17 20:37 Band Neutrophils # 0.1 K/mm3 03/09/17 20:37 Lymphocytes # (Manual) 1.7 K/mm3 (1.2-5.4) 03/09/17 20:37 Abs React Lymphs (Man) 0.1 K/mm3 03/09/17 20:37 Monocytes # (Manual) 0.7 K/mm3 (0.0-0.8) 03/09/17 20:37 Eosinophils # (Manual) 0.7 K/mm3 (0.0-0.4) H 03/09/17 20:37 Basophils # (Manual) 0.1 K/mm3 (0.0-0.1) 03/09/17 20:37 Metamyelocytes # 0.0 K/mm3 03/09/17 20:37 Myelocytes # 0.0 K/mm3 03/09/17 20:37 Promyelocytes # 0.0 K/mm3 03/09/17 20:37 Blast Cells # 0.0 K/mm3 03/09/17 20:37 WBC Morphology Not Reportable 03/09/17 20:37 Hypersegmented Neuts Not Reportable 03/09/17 20:37 Hyposegmented Neuts Not Reportable 03/09/17 20:37 Hypogranular Neuts Not Reportable 03/09/17 20:37 Smudge Cells Not Reportable 03/09/17 20:37 Toxic Granulation Not Reportable 03/09/17 20:37 Toxic Vacuolation Not Reportable 03/09/17 20:37 Dohle Bodies Not Reportable 03/09/17 20:37 Pelger-[place]uet Anomaly Not Reportable 03/09/17 20:37 Shaheen Rods Not Reportable 03/09/17 20:37 Platelet Estimate Consistent w auto 03/09/17 20:37 Clumped Platelets Not Reportable 03/09/17 20:37 Plt Clumps, EDTA Not Reportable 03/09/17 20:37 Large Platelets Not Reportable 03/09/17 20:37 Giant Platelets Not Reportable 03/09/17 20:37 Platelet Satelliting Not Reportable 03/09/17 20:37 Plt Morphology Comment Not Reportable 03/09/17 20:37 RBC Morphology Normal 03/09/17 20:37 Dimorphic RBCs Not Reportable 03/09/17 20:37 Polychromasia Not Reportable 03/09/17 20:37 Hypochromasia Not Reportable 03/09/17 20:37 Poikilocytosis Not Reportable 03/09/17 20:37 Anisocytosis Not Reportable 03/09/17 20:37 Microcytosis Not Reportable 03/09/17 20:37 Macrocytosis Not Reportable 03/09/17 20:37 Spherocytes Not Reportable 03/09/17 20:37 Pappenheimer Bodies Not Reportable 03/09/17 20:37 Sickle Cells Not Reportable 03/09/17 20:37 Target Cells Not Reportable 03/09/17 20:37 Tear Drop Cells Not Reportable 03/09/17 20:37 Ovalocytes Not Reportable 03/09/17 20:37 Helmet Cells Not Reportable 03/09/17 20:37 [place] Bodies Not Reportable 03/09/17 20:37 [place] Rings Not Reportable 03/09/17 20:37 [place] Cells Not Reportable 03/09/17 20:37 Bite Cells Not Reportable 03/09/17 20:37 Crenated Cell Not Reportable 03/09/17 20:37 Elliptocytes Not Reportable 03/09/17 20:37 Acanthocytes (Spur) Not Reportable 03/09/17 20:37 Rouleaux Not Reportable 03/09/17 20:37 Hemoglobin C Crystals Not Reportable 03/09/17 20:37 Schistocytes Not Reportable 03/09/17 20:37 Malaria parasites Not Reportable 03/09/17 20:37 Jose E Bodies Not Reportable 03/09/17 20:37 Hem Pathologist Commnt No 03/09/17 20:37 D-Dimer 278.56 ng/mlDDU (0-234) H 03/10/17 04:58 Sodium 140 mmol/L (137-145) 03/09/17 20:37 Potassium 4.5 mmol/L (3.6-5.0) 03/09/17 20:37 Chloride 105.0 mmol/L (98-107) 03/09/17 20:37 Carbon Dioxide 21 mmol/L (22-30) L 03/09/17 20:37 Anion Gap 19 mmol/L 03/09/17 20:37 BUN 15 mg/dL (7-17) 03/09/17 20:37 Creatinine 0.5 mg/dL (0.7-1.2) L 03/09/17 20:37 Estimated GFR > 60 ml/min 03/09/17 20:37 BUN/Creatinine Ratio 30.00 % 03/09/17 20:37 Glucose 95 mg/dL (65-100) 03/09/17 20:37 Calcium 8.9 mg/dL (8.4-10.2) 03/09/17 20:37 Troponin T < 0.010 ng/mL (0.00-0.029) 03/10/17 02:17 HCG, Qual Negative (Negative) 03/09/17 20:45
[2017-03-11 08:03] LABS: Basophils % (Auto) 0.4 % (0.0-1.8); Eosinophils % (Auto) 0.1 % (0.0-4.3); Hemoglobin 12.7 gm/dl (10.1-14.3); Mean Corpuscular HGB Conc 33 % (30-34); Mean Corpuscular Hemoglobin 29 pg (28-32); Mean Corpuscular Volume 87 fl (79-97); Platelet Count 235 K/mm3 (140-440); Red Blood Count 4.46 M/mm3 (3.65-5.03); Red Cell Distribution Width 14.9 % (13.2-15.2)
[2017-03-11 08:24] LABS: Anion Gap 19 mmol/L; Blood Urea Nitrogen 15 mg/dL (7-17); Calcium 9.1 mg/dL (8.4-10.2); Carbon Dioxide 20 mmol/L (22-30); Chloride 104.6 mmol/L (98-107); Glucose 143 mg/dL (65-100); Potassium 4.4 mmol/L (3.6-5.0); Sodium 139 mmol/L (137-145)
[2017-03-11] MEDS ORDERED: LEXISCAN IV ONE ×2 (09:11→09:12)
[2017-03-11] MEDS ORDERED: ASPIRIN PO SCH (10:00)
[2017-03-11] MEDS: DUONEB *Not for PRN Use IH SCH ×4 (10:59→19:34)
--- NOTE | 2017-03-11 12:21 | Consultation ---
History of Present Illness Consult date: 03/11/17 Reason for consult: dyspnea, other (asthma exacerbation.) History of present illness: Called to evaluate case of a 46-year-old female, who presented to the ED which is complaining of shortness of breath and asthma exacerbation. The patient is latvian speaker, so the interview was performed with her daughter, translating through her cell phone. The patient reports history of chest pain problems noted for the past 3 years. She states that this has been noted as part of lifting some weights at her job. Pain appears to be precordial and affects her breathing causing recent discomfort. She was sent to the hospital after noticing some increased shortness of breath related to pleuritic pain. She has already seen a physician previously for this and at one point she was given an inhaler for her symptoms. She describes what her daughter thinks might be wheezing also. Inhaler sometimes helps. Tends to feel more sick in cold environments. She is a nonsmoker. Denies any active cough or expectoration or hemoptysis. She appears to have some precordial tenderness although it was not possible to fully confirm this, because a limited physical examination consent. Admission Chest CTA was done because her d-dimer was elevated. No evidence of PE was noted. There is some comments about bronchial mucus plugging on the left lower lobe area. A venous lower extremity duplex studies preliminarily failed to show any evidence of DVT. Past History Past Medical History: other (Asthma ) Past Surgical History: No surgical history Social history: lives with family. denies: smoking, alcohol abuse Family history: hypertension Medications and Allergies Allergies Allergy/AdvReac Type Severity Reaction Status Date / Time aspirin Allergy Rash Verified 03/09/17 19:34 Home Medications Medication Instructions Recorded Confirmed Last Taken Type No Known Home Medications [No 03/09/17 03/09/17 Unknown History Reported Home Medications] Active Meds: Active Medications Acetaminophen (Tylenol) 650 mg PO Q4H PRN PRN Reason: Pain MILD(1-3)/Fever >100.5/STALEY Albuterol (Proventil) 2.5 mg IH Q3HRT PRN PRN Reason: Shortness Of Breath Albuterol/Ipratropium (Duoneb *Not For Prn Use*) 1 ampul IH Q6HRT BOO Last Admin: 03/11/17 10:59 Dose: Not Given Amoxicillin/Clavulanate Potassium (Augmentin 875 Mg) 1 each PO Q12HR [facility] Last Admin: 03/10/17 23:38 Dose: 1 each Bisacodyl (Dulcolax) 10 mg AK QDAY PRN PRN Reason: Constipation Enoxaparin Sodium (Lovenox) 40 mg SUB-Q QDAY [facility] Last Admin: 03/10/17 11:17 Dose: 40 mg Famotidine (Pepcid) 40 mg PO QDAY [facility] Last Admin: 03/10/17 14:10 Dose: 40 mg Methylprednisolone Sodium Succinate (Solu-Medrol) 40 mg IV Q6HR [facility] Last Admin: 03/11/17 07:25 Dose: 40 mg Nitroglycerin (Nitrostat) 0.4 mg SL .Q5MIN PRN PRN Reason: Chest Pain Ondansetron HCl (Zofran) 4 mg IV Q8H PRN PRN Reason: N/V unrelieved by Reglan Physical Examination Vital signs: Vital Signs Temp Pulse Resp BP Pulse Ox 98.2 F 74 18 127/70 94 03/09/17 19:21 03/09/17 19:21 03/09/17 19:21 03/09/17 19:21 03/09/17 19:21 General appearance: no acute distress, alert Eyes: non-icteric ENT: oropharynx moist Neck: supple, no lymphadenopathy, no JVD Ascultation: Right: rhonchi (questionable left base), Bilateral: clear Cardiovascular: regular rate and rhythm Integumentary: normal Extremities: no cyanosis Results - Laboratory Findings CBC and BMP: 03/11/17 07:41 03/11/17 07:41 PT/INR, D-dimer D-Dimer 278.56 ng/mlDDU (0-234) H 03/10/17 04:58 Abnormal lab findings: Abnormal Labs 03/11/17 03/11/17 07:41 07:41 WBC 15.0 H Lymph % (Auto) 11.6 L Seg Neutrophils % 83.8 H Seg Neutrophils # 12.6 H Carbon Dioxide 20 L Creatinine 0.6 L Glucose 143 H Assessment and Plan Atypical chest pain Dyspnea. Possible asthma exacerbation. Diagnosis is not clear at this time Left lower lobe because plugging. I not be able to see the patient feels that this finding can be seen occasionally in asthmatics. Recommendations Continue oxygen as needed Acetaminophen or other suitable agent for chest pain DuoNeb nebulization every 4-6 hours Solu-Medrol IV 40-60 mg every 8 hours Incentive spirometry Chest PT
--- NOTE | 2017-03-11 13:08 | Discharge Summary ---
Providers - Providers Date of Admission: 03/10/17 09:43 Date of discharge: 03/11/17 Attending physician: ROCIO GLOVER MD 03/10/17 15:18 Consult to Physician [CONS] Routine Consulting Provider: AMBER YOUNG Reason For Exam: Bronchietasis Place consult to:: dr. young Notified:: answering service Phone number called:: Was contact made?: Yes If yes, spoke with:: rich Time called:: 17:03 Hospitalization Condition: Good Hospital course: Patient is 46 years old Somalian female with past medical history of Asthma, who presents to the emergency department with complaining of shortness of breath.Until this morning patient was at her normal baseline state of health. Patient developed difficulty of breathing this morning around 5:00 AM she has had progressive worsening of shortness of breath. She also has no pets, has not been around any farm animals, and has not traveled recently or been around those who have. Patient also complains chest pain. She states that the pain began yesterday constant left side chest pain. Patient was diagnosed with chest pain, acute asthma exacerbation, acute Bronchitis with mucus plugging and elevated D-dimer. Patient presented with atypical chest pain, ACS was ruled out , stress test normal MPI, negative cardiac enzymes, ECGs shows normal sinus rythm, CXR was wnl and VQ scan with no risk for pulmonary embolism. Patient chest pain most likely due to costochondritis. She was treated with supplemental oxygen, aggressive nebulizer therapy, IV steroids and antibiotics. Patient completed a full course of antibiotic. She is being discharged on oral antibiotic. Also D/C with oral steroid taper, nebulizer and inhaler upon discharge. Patient clinically improved Patient was advised to follow up with her primary care. Discharge Diagnosed Acute Asthma exacerbation Chest Pain due to costochondritis Acute Bronchitis with mucus plugging Elevated D.dimer Disposition: DC-01 TO HOME OR SELFCARE Time spent for discharge: 33 miutes Core Measure Documentation - Palliative Care Palliative Care/ Comfort Measures: Not Applicable - Core Measures Any of the following diagnoses?: none Exam - Constitutional Vitals: Temp Pulse Resp BP Pulse Ox 97.7 F 104 H 18 143/78 92 03/11/17 08:00 03/11/17 09:48 03/11/17 08:00 03/11/17 09:48 03/11/17 08:00 General appearance: Present: no acute distress - EENT Eyes: Present: PERRL ENT: hearing intact - Neck Neck: Present: supple, normal ROM - Respiratory Respiratory effort: normal Respiratory: bilateral: wheezing (mild Clinically optimized) - Cardiovascular Rhythm: regular Heart Sounds: Present: S1 & S2 - Extremities Extremities: no ischemia Peripheral Pulses: within normal limits - Abdominal General gastrointestinal: Present: deferred - Rectal Rectal Exam: deferred - Integumentary Integumentary: Present: clear, warm, dry - Musculoskeletal Musculoskeletal: strength equal bilaterally - Psychiatric Psychiatric: appropriate mood/affect - Neurologic Neurologic: CNII-XII intact - Allied Health Allied health notes reviewed: nursing Plan Activity: no restrictions, fall precautions Weight Bearing Status: Weight Bear as Tolerated Diet: low fat, low cholesterol, low salt Follow up with: GUERLINE MITCHELL [Other] - 3-5 Days Prescriptions: ALBUTEROL NEB's [Proventil 0.083% NEBS] 2.5 mg IH Q3HRT PRN #30 nebu PRN Reason: Shortness Of Breath Amoxicillin/K Clav Tab [Augmentin 875MG TAB] 1 each PO Q12HR #10 tablet Budesonide [Pulmicort Flexhaler] 90 mcg IH BID #30 applicatio Prednisone [predniSONE 10 mg (6-Day Pack, 21 Tabs)] 10 mg PO .TAPER #1 tab.ds.pk
[2017-03-11] MEDS: LOVENOX SUB-Q SCH (13:18)
[2017-03-11] MEDS: PEPCID PO SCH (13:18)
[2017-03-11] MEDS: AUGMENTIN 875 MG PO SCH (13:18)
--- NOTE | 2017-03-11 13:30 | Vascular Lab Report ---
LOWER EXTREMITY VENOUS DUPLEX: REASON FOR EXAM: Elevated D-dimer. COMMENTS ON THE RIGHT: All veins visualized are freely compressible without evidence of internal echogenicity. Flow is spontaneous and phasic throughout. COMMENTS ON THE LEFT: All veins visualized are freely compressible without evidence of internal echogenicity. Flow is spontaneous and phasic throughout. IMPRESSION: No evidence of acute or chronic deep venous thrombosis in either lower extremity.
[2017-03-11 16:15] VITALS: BP 115/64
== END 2017-03-10 19:00 | disposition home or self-care (01) | DRG 202 ==
LOC: ED 18:26 → 3A 03-10 09:43
PROVIDERS: ADMIT Internal Medicine; ATTEND Internal Medicine
DX: J20.9 Acute bronchitis, unspecified (principal); J45.901 Unspecified asthma with (acute) exacerbation; M94.0 Chondrocostal junction syndrome [Tietze]; T17.990A Other foreign object in respiratory tract, part unspecified in causing asphyxiation, initial encounter; Z88.6 Allergy status to analgesic agent; Z82.49 Family history of ischemic heart disease and other diseases of the circulatory system
CPT/HCPCS: 36415; 71020; 71275; 80048; 84484; 84703; 85007; 85025; 85379; 93005; 93010; 93970; 94640; 96372; 96374; J1100; J1650; J2785; J2920; Q9967